=== PATIENT | female | born 1995 | race Caucasian/White ===

== ENCOUNTER 2018-10-26 12:26 | Emergency (ER) | payer OTHER ==
[~2018-10-26] VITALS: Ht 160 cm; Wt 75.0 kg
[2018-10-26 13:26] VITALS: BP 119/57
== END 2018-10-26 14:59 | disposition left against medical advice (07) ==
LOC: EMS 12:27
DX: M54.5 Low back pain (principal); Z53.21 Procedure and treatment not carried out due to patient leaving prior to being seen by health care provider